=== PATIENT | female | born 1990 | race African-American/Black ===

== ENCOUNTER 2024-08-27 20:05 | Emergency (ER) | payer BC ==
[~2024-08-27] VITALS: Ht 167.6 cm; Wt 68.0 kg
[2024-08-27 20:09] VITALS: O2SAT 98
[2024-08-27 20:13] VITALS: BP 105/68; PULSE 68; RESP 16; TEMP 36.6; O2SAT 98
[2024-08-27 21:26] VITALS: TEMP 97.8
[2024-08-27] MEDS: ACETAMINOPHEN 325MG TABLET PO ONE (21:26)
== END 2024-08-27 21:36 | disposition home or self-care (01) ==
LOC: ER 20:05
DX: S09.90XA Unspecified injury of head, initial encounter (principal); Z88.0 Allergy status to penicillin; Z79.899 Other long term (current) drug therapy; Y08.89XA Assault by other specified means, initial encounter; Y93.89 Activity, other specified; Y92.89 Other specified places as the place of occurrence of the external cause; Y99.8 Other external cause status
CPT/HCPCS: 81025; 99284